=== PATIENT | female | born 1985 | race Caucasian/White ===

== ENCOUNTER 2018-12-18 05:46 | Inpatient (IN) | payer BC ==
[2018-12-18] VITALS (24 sets, daily range): BP systolic 103–154; BP diastolic 53–96; PULSE 69–97; TEMP 97.5–98.5
[~2018-12-18] VITALS: Ht 172.7 cm; Wt 113.6 kg
[~2018-12-18 05:46] MED LIST: CLARITIN 1010 MG/TAB PO; MOTRIN 600600 MG/TAB PO; PERCOCET 325 MG1 TA2 PO; PRENATAL1 TA1 PO; SENOKOT S 50 MG1 TAB PO
[2018-12-18 06:44] LABS: BASO # 0.1 (0.0-0.2); BASO % 0.4 % (0.0-2.0); EOS # 0.2 (0.0-0.7); EOS % 1.3 % (0-4.0); GRAN # 9.8 (1.4-6.5); GRAN % 73.7 % (42.2-75.2); HEMATOCRIT 37.7 % (37.0-47.0); HEMOGLOBIN 13.1 g/dl (12.5-16.0); LYMPH # 2.2 (1.2-3.4); LYMPH % 16.2 % (20.0-51.0); MEAN CELL VOLUME 85 fl (80.0-100.0); MEAN CORPUSCULAR HEMOGLOBIN 30 pg (27.0-31.0); MEAN CORPUSCULAR HGB CONC 35 g/dl (33.0-37.0); MEAN PLATELET VOLUME 11.4 fl (7.4-10.4); MONO # 0.9 (0.1-0.6); PLATELET COUNT 192 K/mm3 (130-400); RED BLOOD COUNT 4.42 M/mm3 (4.10-5.30); REDCELL DISTRIBUTION WIDTH-CV 13.2 % (11.5-14.5)
[2018-12-19 03:20] VITALS: BP 137/69; PULSE 99; TEMP 98.2
[2018-12-19 07:39] LABS: HEMOGLOBIN 11.4 g/dl (12.5-16.0)
[2018-12-19 07:40] VITALS: BP 129/74; PULSE 80; TEMP 98.1
[2018-12-19 07:52] LABS: HEMATOCRIT 34.2 % (37.0-47.0)
[2018-12-19] MEDS ORDERED: IBU600 MG PO (10:07)
[2018-12-19 12:00] VITALS: BP 125/77; PULSE 70; TEMP 98
== END 2018-12-19 13:15 | disposition home or self-care (01) | DRG 807 ==
LOC: LDRO 05:46 → LDR 06:34 → OB 06:34
PROVIDERS: ADMIT Obstetrics & Gynecology
PROC: 10E0XZZ Delivery of Products of Conception, External Approach (ICD-10-PCS; principal; 2018-12-18)
PROC: 0KQM0ZZ Repair Perineum Muscle, Open Approach (ICD-10-PCS; 2018-12-18)
DX: O99.52 Diseases of the respiratory system complicating childbirth (principal); Z37.0 Single live birth; J45.909 Unspecified asthma, uncomplicated; O99.214 Obesity complicating childbirth; O34.211 Maternal care for low transverse scar from previous cesarean delivery; O70.1 Second degree perineal laceration during delivery; O42.92 Full-term premature rupture of membranes, unspecified as to length of time between rupture and onset of labor; Z3A.39 39 weeks gestation of pregnancy
CPT/HCPCS: J2590; J2795; J7120